=== PATIENT | female | born 1940 | race Caucasian/White ===

== ENCOUNTER 2017-03-20 05:59 | Observation (INO) | payer MEDICARE, OTHER ==
[2017-03-20] VITALS (8 sets, daily range): BP systolic 114–196; BP diastolic 64–87; PULSE 66–98; RESP 17–22; TEMP 97.8–98; O2SAT 96–100
[~2017-03-20 05:59] MED LIST: ALEN35TA24 PO; BENI40TA30 PO; BONI150T PO; CALC600T10; COUM4TAB7 PO; HYDR12.56 PO; LEVO125T3 PO; MELO15TA2 PO; METF1000 PO; OMEG306C PO; OXYB5TAB PO; PRAV10 PO; VITA100020 IM; WARF2TAB PO; WARF5TAB PO; WARF7.5 PO; [UNRECOGNIZED DRUG - SUPPLY]
--- NOTE | 2017-03-20 06:21 | PD ---
HPI Chief Complaint: Hip Injury Time Seen by Provider: 06:19 Travel History International Travel<30 days: No Contact w/Intl Traveler<30days: No Traveled to known affect area: No History of Present Illness HPI 76 yo F arrives by EMS 2/2 L hip pain. Pt has hx L total hip arthroplasty. This morning she could not lift her left leg or get out of bed due to pain. Pain is worse with palpation. She denies trauma/repetitive use of LLE. No other acute complaint is offered. Normally she takes tramadol which helps but she did not take any this morning. She reports taking two Tylenol approx 2 hours prior to ER arrival. No numbness/tingling or either lower extremity. PFSH Past Medical History Anemia: Yes Diabetes: Yes Patient Takes Glucophage: No Hypertension: Yes Thyroid Disease: Yes ?: Not Past Surgical History Hysterectomy: Yes Social History Alcohol Use: Yes Tobacco Use: No Substance Use: No Allergies-Medications (Allergen,Severity, Reaction): Coded Allergies: Penicillin (Verified Allergy, Intermediate, HIVES, 03/20/17) Reported Meds & Prescriptions Reported Meds & Active Scripts Active Reported Tramadol (Tramadol HCl) 50 Mg Tab 50 Mg PO Q6H PRN Linzess (Linaclotide) 145 Mcg Cap 145 Mcg PO Pravastatin 10 Mg Tab 10 Mg PO HS Losartan (Losartan Potassium) 25 Mg Tab 25 Mg PO DAILY Ditropan (Oxybutynin Chloride) 5 Mg Tab 5 Mg PO DAILY Levothyroxine (Levothyroxine Sodium) 125 Mcg Tab 125 Mcg PO DAILY Amlodipine (Amlodipine Besylate) 2.5 Mg Tab 2.5 Mg PO DAILY Hydrochlorothiazide 12.5 Mg Tab 12.5 Mg PO DAILY Pradaxa (Dabigatran) 150 Mg Cap 150 Mg PO BID Metformin (Metformin HCl) 1,000 Mg Tab 1,000 Mg PO DAILY With a meal Review of Systems Except as stated in HPI: all other systems reviewed are Neg General / Constitutional: No: Fever, Chills Physical Exam Narrative GENERAL: 76 yo F, WNWD, pleasant SKIN: Warm and dry. HEAD: Atraumatic. Normocephalic. EYES: Pupils equal and round. No scleral icterus. No injection or drainage. ENT: No nasal bleeding or discharge. Mucous membranes pink and moist. NECK: Trachea midline. No JVD. CARDIOVASCULAR: Regular rate and rhythm. RESPIRATORY: No accessory muscle use. Clear to auscultation. Breath sounds equal bilaterally. GASTROINTESTINAL: Abdomen soft, non-tender, nondistended. Hepatic and splenic margins not palpable. MUSCULOSKELETAL: LLE active hip flexion limited 2/2 pain. + Pain with axial load at LLE. Chronic shortening deformity of LLE. Minimal TTP overlying L greater trochanter. NEUROLOGICAL: Awake and alert. No obvious cranial nerve deficits. Motor grossly within normal limits. Five out of 5 muscle strength in the arms and legs. Normal speech. PSYCHIATRIC: Appropriate mood and affect; insight and judgment normal. Data Data Last Documented VS Vital Signs Date Time Temp Pulse Resp B/P Pulse Ox O2 Delivery O2 Flow Rate FiO2 03/20/17 06:35 96 Room Air 03/20/17 06:00 97.9 98 22 196/87 VS reviewed Orders Complete Blood Count With Diff (03/20/17 06:19) Comprehensive Metabolic Panel (03/20/17 06:19) Prothrombin Time / Inr (Pt) (03/20/17 06:19) Act Partial Throm Time (Ptt) (03/20/17 06:19) Femur (Ap & Lat/2vws) (03/20/17 06:19) Hip, Uni(Ap&Lat) W Ap Pelvis (03/20/17 06:19) Iv Access Insert/Monitor (03/20/17 06:19) Oximetry (03/20/17 06:19) Ecg Monitoring (03/20/17 06:19) Morphine Inj (Morphine Inj) (03/20/17 06:30) Ondansetron Inj (Zofran Inj) (03/20/17 06:30) Sodium Chloride 0.9% Flush (Ns Flush) (03/20/17 06:30) MDM Medical Decision Making Medical Screen Exam Complete: Yes Emergency Medical Condition: Yes Medical Record Reviewed: Yes Differential Diagnosis Femur fracture, femur dislocation, pelvis fracture, hardware migration Narrative Course Imaging and blood work pending at time of dictation. Oncoming provider to disposition pending imaging results. Abdoulaye Burgess MD Mar 20, 2017 06:21
[2017-03-20] MEDS ORDERED: TRAM50TA PO (06:24)
[2017-03-20] MEDS ORDERED: PRAV10TA PO (06:24)
[2017-03-20] MEDS ORDERED: METF1000 PO (06:24)
[2017-03-20] MEDS ORDERED: PRAD150C PO (06:24)
[2017-03-20] MEDS ORDERED: OXYB5TAB10 PO (06:24)
[2017-03-20] MEDS ORDERED: LEVO125T4 PO (06:24)
[2017-03-20] MEDS ORDERED: HYDR12.56 PO (06:24)
[2017-03-20] MEDS ORDERED: LINA145C PO (06:24)
[2017-03-20] MEDS ORDERED: AMLO2.5T PO (06:24)
[2017-03-20] MEDS ORDERED: LOSA25TA PO (06:24)
[2017-03-20] MEDS ORDERED: SODIUM CHLORIDE 0.9% FLUSH 10 ML FLUSH IVF PRN (06:30)
[2017-03-20] MEDS ORDERED: MORPHINE SULFATE 4 MG/ML INJ IV PUSH ONE ×3 (06:30→09:15)
[2017-03-20] MEDS ORDERED: ONDANSETRON HCL 4 MG/2 ML VIAL IVP ONE (06:30)
[2017-03-20 06:46] LABS: AUTOMATED NEUTROPHIL # 4.6 TH/MM3 (1.8-7.7); BASOPHIL % 0.1 % (0.0-2.0); HEMATOCRIT 41.2 % (35.0-46.0); HEMO FLAGS DIFF FINAL; LYMPH % 28.9 % (9.0-44.0); LYMPHOCYTE # 2.2 TH/MM3 (1.0-4.8); MEAN CELL VOLUME 78.7 FL (80.0-100.0); MEAN CORPUSCULAR HEMOGLOBIN 25.9 PG (27.0-34.0); MEAN CORPUSCULAR HGB CONC 32.9 % (32.0-36.0); MONO % 9.3 % (0.0-8.0); NEUT % 61.7 % (16.0-70.0); PLATELET COUNT 217 TH/MM3 (150-450); RED BLOOD COUNT 5.24 MIL/MM3 (4.00-5.30); RED CELL DISTRIBUTION WIDTH 16.1 % (11.6-17.2); WHITE BLOOD COUNT 7.5 TH/MM3 (4.0-11.0)
[2017-03-20 06:59] LABS: APTT (PATIENT) 35.4 SEC (24.3-30.1); PROTHROMBIN TIME - PATIENT 11.4 SEC (9.8-11.6)
--- NOTE | 2017-03-20 07:04 | PD ---
Physical Exam Date Seen by Provider: Mar 20, 2017 Time Seen by Provider: 07:02 Narrative The patient is a 76-year-old female who is initially evaluated by Dr. Burgess. Please refer to the initial history, physical, diagnostic evaluation, and treatment modality plan. The patient signed out at 7 AM with laboratory evaluation and radiographic evaluation pending. The patient apparently has chronic bilateral hip pain with progressing left hip pain, unable to flex the left hip this morning and unable to ambulate or bear weight. The patient apparently had surgery that was performed in [place] but is followed by an orthopedic surgeon in the local area, according to Dr. uBrgess. Data Data Last Documented VS Vital Signs Date Time Temp Pulse Resp B/P Pulse Ox O2 Delivery O2 Flow Rate FiO2 03/20/17 08:50 18 03/20/17 08:44 79 168/69 98 Room Air 03/20/17 06:00 97.9 Orders Complete Blood Count With Diff (03/20/17 06:19) Comprehensive Metabolic Panel (03/20/17 06:19) Prothrombin Time / Inr (Pt) (03/20/17 06:19) Act Partial Throm Time (Ptt) (03/20/17 06:19) Femur (Ap & Lat/2vws) (03/20/17 06:19) Hip, Uni(Ap&Lat) W Ap Pelvis (03/20/17 06:19) Iv Access Insert/Monitor (03/20/17 06:19) Oximetry (03/20/17 06:19) Ecg Monitoring (03/20/17 06:19) Morphine Inj (Morphine Inj) (03/20/17 06:30) Ondansetron Inj (Zofran Inj) (03/20/17 06:30) Sodium Chloride 0.9% Flush (Ns Flush) (03/20/17 06:30) Morphine Inj (Morphine Inj) (03/20/17 08:15) Morphine Inj (Morphine Inj) (03/20/17 09:15) Amlodipine (Norvasc) (03/20/17 09:45) Admit Order (Ed Use Only) (03/20/17 09:39) Dabigatran (Pradaxa) (03/20/17 09:45) Hydrochlorothiazide (Microzide) (03/20/17 09:45) Levothyroxine (Synthroid) (03/20/17 09:45) Losartan (Cozaar) (03/20/17 09:45) Pravastatin (Pravachol) (03/20/17 21:00) Tramadol (Ultram) (03/20/17 09:45) Labs Laboratory Tests Test 03/20/17 06:27 White Blood Count 7.5 TH/MM3 Red Blood Count 5.24 MIL/MM3 Hemoglobin 13.6 GM/DL Hematocrit 41.2 % Mean Corpuscular Volume 78.7 FL Mean Corpuscular Hemoglobin 25.9 PG Mean Corpuscular Hemoglobin 32.9 % Concent Red Cell Distribution Width 16.1 % Platelet Count 217 TH/MM3 Mean Platelet Volume 8.9 FL Neutrophils (%) (Auto) 61.7 % Lymphocytes (%) (Auto) 28.9 % Monocytes (%) (Auto) 9.3 % Eosinophils (%) (Auto) 0.0 % Basophils (%) (Auto) 0.1 % Neutrophils # (Auto) 4.6 TH/MM3 Lymphocytes # (Auto) 2.2 TH/MM3 Monocytes # (Auto) 0.7 TH/MM3 Eosinophils # (Auto) 0.0 TH/MM3 Basophils # (Auto) 0.0 TH/MM3 CBC Comment DIFF FINAL Differential Comment Prothrombin Time 11.4 SEC Prothromb Time International 1.0 RATIO Ratio Activated Partial 35.4 SEC Thromboplast Time Sodium Level 139 MEQ/L Potassium Level 3.6 MEQ/L Chloride Level 102 MEQ/L Carbon Dioxide Level 27.4 MEQ/L Anion Gap 10 MEQ/L Blood Urea Nitrogen 12 MG/DL Creatinine 0.77 MG/DL Estimat Glomerular Filtration 73 ML/MIN Rate Random Glucose 151 MG/DL Calcium Level 9.4 MG/DL Total Bilirubin 0.4 MG/DL Aspartate Amino Transf 13 U/L (AST/SGOT) Alanine Aminotransferase 14 U/L (ALT/SGPT) Alkaline Phosphatase 89 U/L Total Protein 7.9 GM/DL Albumin 3.8 GM/DL [facility] Medical Record Reviewed: Yes Supervised Visit with CAMI: No Interpretation(s) Last Impressions Hip and Pelvis X-Ray 03/20/17618 Signed Impressions: Service Date/Time: Monday, March 20, 2017 06:43 - CONCLUSION: No acute left hip abnormality is identified. However, there has been left total hip arthroplasty with longstem femoral prosthesis and the acetabulum is superiorly located compared to the [place] acetabulum. The most proximal cerclage wire is fractured but otherwise artery demonstrates no acute finding. Irving Mejia MD Femur X-Ray 03/20/17 0619 Signed Impressions: Service Date/Time: Monday, March 20, 2017 06:45 - CONCLUSION: No definite acute finding is identified. Extensive left femur and hip hardware, as above. The most proximal left femur cerclage wire is fractured. Irving Mejia MD Differential Diagnosis Differential diagnosis includes fracture, dislocation, hardware migration, sprain, strain, septic joint. Narrative Course The patient was initially evaluated by the previous physician, Dr. Burgess. Please refer to initial history, physical, diagnostic evaluation, and treatment modality plan. The patient was signed out at 7 AM with laboratory evaluation and radiographic evaluation pending. The patient was seen by Dr. Ibrahim, now is followed by Dr. Tate. The patient's pain was improved with morphine, however, the patient still had pain with flexion of the hip, she was able to flex at 30 after the initial dose of morphine. Therefore, second dose of morphine was ordered. X-rays reveal chronic changes, no acute findings. An attempt at ambulation was then made after the second dose of morphine. The patient was only able to ambulate 2 steps with her cane and then had to sit back down secondary to intractable pain. I had a discussion with the patient regarding pain medication and outpatient follow-up with Dr. Tate versus 23 hour observation for pain control, PT evaluation, and evaluation by her orthopedic surgeon, Dr. Tate. Patient has been unable to sleep secondary to increasing pain, therefore, patient will be 23 hour observation. The patient has [employer], therefore, [facility] were paged for 23 hour observation. Physician Communication Physician Communication [facility] were paged for 23 hour observation. I discussed the patient with Dr. Morin who agrees with 23 hour observation. Diagnosis Primary Impression: Intractable pain Additional Impression: Inability to ambulate due to hip Admitting Information Admitting Physician Requests: Observation Condition: Stable Brian Shah MD Mar 20, 2017 07:03
[2017-03-20 07:09] LABS: ALT (GPT) 14 U/L (10-53); ANION GAP 10 MEQ/L (5-15); AST (GOT) 13 U/L (15-37); BICARBONATE 27.4 MEQ/L (21.0-32.0); BLOOD UREA NITROGEN 12 MG/DL (7-18); CHLORIDE 102 MEQ/L (98-107); GLOMERULAR FILTRATION RATE 73 ML/MIN (>89); POTASSIUM 3.6 MEQ/L (3.5-5.1); SODIUM (NA) 139 MEQ/L (136-145)
[2017-03-20 07:10] LABS: ALKALINE PHOSPHATASE 89 U/L (45-117); TOTAL BILIRUBIN ADULT 0.4 MG/DL (0.2-1.0)
--- NOTE | 2017-03-20 07:17 | RADRPT ---
EXAM DATE/TIME: 03/20/2017 06:43 [facility] COMPARISON: FEMUR LEFT (AP & LAT/2VWS), March 20, 2017, 6:45. INDICATIONS : Left hip pain, no injury. MEDICAL HISTORY : Arthritis. SURGICAL HISTORY : Right total hip, left total hip, ORIF left femur ENCOUNTER: Initial ACUITY: 4 - 6 days PAIN SCORE: 10/10 LOCATION: Left proximal hip FINDINGS: AP view of the pelvis and 2 views of the left hip joint demonstrate moderate to left total hip arthro plasty with longstem femoral prosthesis. The acetabular component is superiorly located above the [place] acetabulum. It contains 4 cancellous screws. There are also cerclage wires around the proximal an d mid femur. The most proximal cerclage wire is fractured. There is heterotopic bone around the left hip joint. There are no findings to indicate hardware failure or loosening. Patient is also post righ t total hip arthroplasty. Pelvic bones demonstrate no acute finding. There are degenerative changes i n the visualized inferior lumbar spine. CONCLUSION: No acute left hip abnormality is identified. However, there has been left total hip arthroplasty with longstem femoral prosthesis and the acetabulum is superiorly located compared to the [place] acetabul um. The most proximal cerclage wire is fractured but otherwise artery demonstrates no acute finding. Irving Mejia MD on March 20, 2017 at 7:12 Board Certified Radiologist. This report was verified electronically.
--- NOTE | 2017-03-20 07:21 | RADRPT ---
EXAM DATE/TIME: 03/20/2017 06:45 [facility] COMPARISON: No previous studies available for comparison. INDICATIONS : Left femur pain, no injury. MEDICAL HISTORY : Arthritis. SURGICAL HISTORY : Left total hip, Left ORIF femur ENCOUNTER: Initial ACUITY: 4 - 6 days PAIN SCORE: 10/10 LOCATION: Left proximal femur FINDINGS: 5 views of the left femur demonstrate a longstem femoral prosthesis in the proximal femur related to a total hip arthroplasty. There are multiple cerclage wires present proximally and distally with the most proximal cerclage wire being fractured. There is also a distal lateral femoral side plate with m ultiple interlocking screws. The acetabular component of the hip arthroplasty superiorly located. The re is heterotopic ossification around the hip joint. No soft tissue abnormality is seen. CONCLUSION: No definite acute finding is identified. Extensive left femur and hip hardware, as above. The most pr oximal left femur cerclage wire is fractured. Irving Mejia MD on March 20, 2017 at 7:18 Board Certified Radiologist. This report was verified electronically.
[2017-03-20] MEDS ORDERED: LACTULOSE SYRUP 20 GM/30 ML CUP PO PRN (09:45)
[2017-03-20] MEDS ORDERED: NALOXONE HCL 0.4 MG/ML AMP IV PRN (09:45)
[2017-03-20] MEDS ORDERED: BISACODYL 10 MG SUPP RECTAL PRN (09:45)
[2017-03-20] MEDS ORDERED: SODIUM CHLORIDE 0.9% FLUSH 10 ML FLUSH IV FLUSH PRN (09:45)
[2017-03-20] MEDS ORDERED: ACETAMINOPHEN 325 MG TAB PO PRN (09:45)
[2017-03-20] MEDS ORDERED: SENNOSIDES 8.6 MG TAB PO PRN (09:45)
[2017-03-20] MEDS ORDERED: ONDANSETRON HCL 4 MG/2 ML VIAL IVP PRN (09:45)
[2017-03-20] MEDS ORDERED: MAGNESIUM HYDROXIDE SUSP 30 ML CUP PO PRN (09:45)
[2017-03-20] MEDS ORDERED: PILL SPLITTER OTHER PRN (10:00)
--- NOTE | 2017-03-20 10:09 | HHI.HP ---
HPI Service [facility] Primary Care Physician Candy Belle, [facility] Admission Diagnosis intractable left hip pain, inability to ambulate Diagnoses: Chief Complaint: Left Hip Pain Travel History International Travel<30 Days: No Contact w/Intl Traveler <30 Da: No Traveled to Known Affected Are: No History of Present Illness 76-year-old female with a past medical history of chronic left hip pain, HTN, HLD, DM, hypothyroidism, urinary incontinence, history of DVT who presented for worsening left hip pain. The patient states that since Sunday she's been having worsening left hip pain. The patient has a history of chronic left hip pain with surgery 6 with previous hardware failure, left pleurectomy DVT several years ago, history of MRSA infection of the left hip postoperatively. The patient states that previously she had intermittent left chest pain but is now become constant. She states that previously she takes tramadol for the hip pain usually once a day, the most 2. She denies any new injury to her hip or any recent overuse. She states the Pain has been relieved with morphine and is exacerbated when she moves it. He denies any fevers or chills. Her current orthopedic doctor is Dr. Tate. Review of Systems Musculoskeletal: COMPLAINS OF: Joint pain Except as stated in HPI: all other systems reviewed are Neg Past Family Social History Past Medical History Hypertension Hyperlipidemia Diabetes mellitus Osteoarthritis with chronic hip and shoulder pain Hyperthyroidism History of provoked left lower showing DVT History of postoperative MRSA infection Past Surgical History Left hip surgery 6 Hysterectomy Right hip surgery 1 Right leg tumor removal Reported Medications Tramadol (Tramadol HCl) 50 Mg Tab 50 Mg PO Q6H PRN Linzess (Linaclotide) 145 Mcg Cap 145 Mcg PO Pravastatin 10 Mg Tab 10 Mg PO HS Losartan (Losartan Potassium) 25 Mg Tab 25 Mg PO DAILY Ditropan (Oxybutynin Chloride) 5 Mg Tab 5 Mg PO DAILY Levothyroxine (Levothyroxine Sodium) 125 Mcg Tab 125 Mcg PO DAILY Amlodipine (Amlodipine Besylate) 2.5 Mg Tab 2.5 Mg PO DAILY Hydrochlorothiazide 12.5 Mg Tab 12.5 Mg PO DAILY Pradaxa (Dabigatran) 150 Mg Cap 150 Mg PO BID Metformin (Metformin HCl) 1,000 Mg Tab 1,000 Mg PO DAILY With a meal Allergies: Coded Allergies: Penicillin (Verified Allergy, Intermediate, HIVES, 03/20/17) Active Ordered Medications Current Medications Medications (Trade) Dose Ordered Sig/Catracho Route Start Time Stop Time Status Last Admin (Norvasc) 2.5 mg DAILY PO 03/20/17 09:45 (Pradaxa) 150 mg BID PO 03/20/17 09:45 (Microzide) 12.5 mg DAILY PO 03/20/17 09:45 (Synthroid) 125 mcg DAILY@06 PO 03/20/17 09:45 (Cozaar) 25 mg DAILY PO 03/20/17 09:45 (Pravachol) 10 mg HS PO 03/20/17 21:00 (Ultram) 50 mg Q6H PRN PO 03/20/17 09:45 UNV (NS Flush) 2 ml UNSCH PRN IV FLUSH 03/20/17 09:45 UNV (NS Flush) 2 ml BID IV FLUSH 03/20/17 21:00 UNV (Tylenol) 650 mg Q4H PRN PO 03/20/17 09:45 (Zofran Inj) 4 mg Q6H PRN IVP 03/20/17 09:45 (Narcan Inj) 0.4 mg UNSCH PRN IV 03/20/17 09:45 (Kelsie-Colace) 1 tab BID PO 03/20/17 21:00 (Milk Of Magnesia Liq) 30 ml Q12H PRN PO 03/20/17 09:45 (Senokot) 17.2 mg Q12H PRN PO 03/20/17 09:45 (Dulcolax Supp) 10 mg DAILY PRN RECTAL 03/20/17 09:45 (Lactulose Liq) 30 ml DAILY PRN PO 03/20/17 09:45 (Pill Splitter) 1 ea UNSCH PRN OTHER 03/20/17 10:00 Family History Mother had diabetes Social History This at home and ambulates using a cane May drink one beer weekly Denies any tobacco or substance use Physical Exam Vital Signs Vital Signs Date Time Temp Pulse Resp B/P Pulse Ox O2 Delivery O2 Flow Rate FiO2 03/20/17 08:50 18 03/20/17 08:44 79 18 168/69 98 Room Air 03/20/17 07:11 76 18 156/68 100 Room Air 03/20/17 06:35 96 Room Air 03/20/17 06:00 97.9 98 22 196/87 98 Room Air Physical Exam GENERAL: Well-developed well-nourished. In no acute distress. SKIN: Warm and dry. No lesions noted. HEENT: Normocephalic. Pupils equal and round. Mucous membranes pink and moist. CARDIOVASCULAR: Regular rate and rhythm. No murmur appreciated. RESPIRATORY: No accessory muscle use. Clear to auscultation. Breath sounds equal bilaterally. GASTROINTESTINAL: Abdomen soft, non-tender, nondistended. Bowel sounds x4. MUSCULOSKELETAL: Left hip pain with ROM. No history of TTP. No calf swelling or tenderness. No clubbing or cyanosis. No edema. NEUROLOGICAL: Awake and alert. No focal neurological deficits. Moves upper and lower extremities spontaneously. Normal speech. Limited strength exam at left hip. Otherwise strength 5/5. PSYCHIATRIC: Appropriate mood and affect; insight and judgment normal. Laboratory Laboratory Tests Test 03/20/17 06:27 White Blood Count 7.5 Red Blood Count 5.24 Hemoglobin 13.6 Hematocrit 41.2 Mean Corpuscular Volume 78.7 Mean Corpuscular Hemoglobin 25.9 Mean Corpuscular Hemoglobin 32.9 Concent Red Cell Distribution Width 16.1 Platelet Count 217 Mean Platelet Volume 8.9 Neutrophils (%) (Auto) 61.7 Lymphocytes (%) (Auto) 28.9 Monocytes (%) (Auto) 9.3 Eosinophils (%) (Auto) 0.0 Basophils (%) (Auto) 0.1 Neutrophils # (Auto) 4.6 Lymphocytes # (Auto) 2.2 Monocytes # (Auto) 0.7 Eosinophils # (Auto) 0.0 Basophils # (Auto) 0.0 CBC Comment DIFF FINAL Differential Comment Prothrombin Time 11.4 Prothromb Time International 1.0 Ratio Activated Partial 35.4 Thromboplast Time Sodium Level 139 Potassium Level 3.6 Chloride Level 102 Carbon Dioxide Level 27.4 Anion Gap 10 Blood Urea Nitrogen 12 Creatinine 0.77 Estimat Glomerular Filtration 73 Rate Random Glucose 151 Calcium Level 9.4 Total Bilirubin 0.4 Aspartate Amino Transf 13 (AST/SGOT) Alanine Aminotransferase 14 (ALT/SGPT) Alkaline Phosphatase 89 Total Protein 7.9 Albumin 3.8 Result Diagram: 03/20/1762603/20/17626 Imaging Last Impressions Hip and Pelvis X-Ray 03/20/17618 Signed Impressions: Service Date/Time: Monday, March 20, 2017 06:43 - CONCLUSION: No acute left hip abnormality is identified. However, there has been left total hip arthroplasty with longstem femoral prosthesis and the acetabulum is superiorly located compared to the [place] acetabulum. The most proximal cerclage wire is fractured but otherwise artery demonstrates no acute finding. Irving Mejia MD Femur X-Ray 03/20/17618 Signed Impressions: Service Date/Time: Monday, March 20, 2017 06:45 - CONCLUSION: No definite acute finding is identified. Extensive left femur and hip hardware, as above. The most proximal left femur cerclage wire is fractured. Irving Mejia MD Assessment and Plan Assessment and Plan 76-year-old female with a past medical history of chronic left hip pain, HTN, HLD, DM, hypothyroidism, urinary incontinence, history of DVT who presented for worsening left hip pain Acute on chronic intractable left hip pain: X-rays show no acute findings with stable hardware other than proximal left cerclage wire which was fractured. Consult patient's orthopedic physician, although we'll plan on conservative management. Continue pain control with tramadol and IV morphine for breakthrough. PT. Diabetes mellitus: Hold her metformin. Monitor Accu-Cheks. Cover with SSI. History of DVT: Continue Pradaxa for now pending orthopedic evaluation. Hypertension: Chronic. BP is elevated at this time, likely secondary to pain. Continue home losartan, amlodipine, HCTZ. IV Vasotec as needed. Other chronic medical conditions include HLD, incontinence, chronic constipation : Stable at this time and will continue home medications as indicated. Code Status Full Code Discussed Condition With Patient with daughter at bedside, Dr. Morin at bedside Attending Statement patient seen in Emergency room, plan discussed with Patient, her Daughter Miss Stone and Adis Fernandes Mar 20, 2017 10:09 Aakash Lemus MD Mar 20, 2017 16:22
[2017-03-20] MEDS ORDERED: ENALAPRILAT 1.25 MG/ML VIAL IV PUSH PRN (10:30)
[2017-03-20] MEDS: DABIGATRAN ETEXILATE 150 MG CAP PO SCH ×2 (13:00→20:45)
[2017-03-20] MEDS: HYDROCHLOROTHIAZIDE 12.5 MG CAP PO SCH (13:00)
[2017-03-20] MEDS: amLODIPine BESYLATE 5 MG TAB PO SCH (13:02)
[2017-03-20] MEDS: INSULIN NovoLIN REGULAR SUPPLEMENTAL SCALE SQ SCH ×3 (13:02→21:00)
[2017-03-20] MEDS: LOSARTAN 25 MG TAB PO SCH (13:02)
[2017-03-20] MEDS: LEVOTHYROXINE SODIUM 125 MCG TAB PO SCH (13:02)
[2017-03-20] MEDS: traMADol HCL 50 MG TAB PO PRN ×2 (15:11→20:46)
[2017-03-20] MEDS: MORPHINE SULFATE 4 MG/ML INJ IV PUSH PRN (16:59)
[2017-03-20] MEDS: FAMOTIDINE 20 MG TAB PO SCH ×2 (17:29→20:45)
--- NOTE | 2017-03-20 19:10 | MB ---
cc: LUIS F HODGES DATE OF CONSULTATION 03/20/2017 REASON FOR CONSULTATION Left hip pain. HISTORY OF THE PRESENT ILLNESS The patient is a 76-year-old female who has a complex history in regards to her left hip. She states she has undergone approximately five or six surgeries in regards to the left hip. [place]. She had a fracture that required surgical repair. She states at one point she had an infection that required surgical debridement and treatment. She thinks she has had a total of approximately six surgeries. She states she is doing relatively well until approximately five days ago when she started to develop the onset of left hip pain. She denies any falls or trauma to her hip. She is walking with a cane. She has been taken to [facility] Emergency Room. She was given morphine which is helping her symptoms. She denies fevers or chills. No numbness or tingling. Most of the pain was the lateral aspect of the left hip and lateral aspect of the left gluteal region. PAST MEDICAL HISTORY Positive for: 1. Hypertension. 2. Hyperlipidemia. 3. Diabetes. 4. Osteoarthritis. 5. Hypothyroidism. 6. History of deep venous thrombosis. 7. History of multiple left hip surgeries. 8. Hysterectomy. 9. History of right total hip arthroplasty. 10. History of right leg tumor removal. MEDICATIONS 1. Tramadol. 2. Pravastatin. 3. Losartan. 4. Ditropan. 5. Levothyroxine. 6. Amlodipine. 7. Hydrochlorothiazide. 8. Pradaxa. 9. Glucophage. ALLERGIES PENICILLIN. REVIEW OF SYSTEMS Negative for 12 systems other than HPI. SOCIAL HISTORY Nonsmoker, nondrinker. PHYSICAL EXAMINATION HEENT: Normocephalic, atraumatic. Pupils are round. Extraocular muscles intact. NECK: Supple. LUNGS: Clear. HEART: Regular rate and rhythm. ABDOMEN: Soft and nontender. EXTREMITIES: Examination of the left hip, she has a well healed surgical incision along the posterior lateral aspect. There is no swelling. There is no redness. No erythema. No drainage. She ambulates antalgic with the assistance of a cane. She can flex and extend her ankle and toes distally. No asymmetric thigh or calf swelling. LABORATORY DATA White blood cell count 7.5, hemoglobin 13, hematocrit 41, platelet 217. Glucose 151, BUN 12, creatinine 0.7. INR is 1.0. AST is 13. IMAGING X-rays of the AP pelvis, AP lateral left hip shows bilateral total hip arthroplasties. The left hip shows a revision cup with multiple screws transfixed in the acetabular cup. The cup has a slightly high riding position center to the acetabulum. There is a long revision femoral stem which appears intact. There is evidence of cerclage cables around the proximal portion of the stem with one cable that was chronically broken. She has a long cerclage cable plate which looks intact and a healed periprosthetic fracture. IMPRESSION A 76-year-old female left hip pain, increasing severity the last 5 days. She has multiple complex history in regards to the left hip to include six surgeries which consist of total hip arthroplasty revision, total hip arthroplasty. She had treatment of reported infection at one point. She has had periprosthetic fractures. These have been treated with surgical plating. She has tenderness to palpation along the lateral aspect of the left hip which may show a trochanteric bursitis. PLAN I have discussed the findings with the patient. I have the diagnosis with the patient. I recommend x-rays AP and lateral of the left femur. Recommend CT scan of the left hip. Still is not certain the etiology of the increasing pain at this point, so further workup is indicated. Luis F Hodges MD JWM/KK /6:45 PM /7:00 PM
--- NOTE | 2017-03-20 20:31 | RADRPT ---
EXAM DATE/TIME: 03/20/2017 19:59 [place] COMPARISON: FEMUR LEFT (AP & LAT/2VWS), March 20, 2017, 6:45. HIP LEFT (AP&LAT 2/3VWS) W AP PELVIS, March 20, 2017 , 6:43. INDICATIONS : Left femur pain, no known injury. RADIATION DOSE: 32.79 CTDIvol (mGy) MEDICAL HISTORY : Carcinoma, bone. SURGICAL HISTORY : Left total hip. Left ORIF femur. ENCOUNTER: Initial ACUITY: 1 day PAIN SCALE: 8/10 LOCATION: Left femur. TECHNIQUE: Volumetric scanning of the femur was performed. Using automated exposure control and adjustment of t he mA and/or kV according to patient size, radiation dose was kept as low as reasonably achievable to obtain optimal diagnostic quality images. FINDINGS: Don't have a remote priors. Patient has a left total hip arthroplasty that has probably been revised at least once. The acetabular component is located superiorly and posteriorly within the iliac bone. There are 4 screws of the acetabular cup that all appear to have decent purchase into bone. There is chronic periacetabular remodeling and potentially an old acetabular fracture. I don't see an acute fr acture. Longstem femoral component is present. There is a large amount of chronic appearing bone resorption p osterior to the proximal portion of the femoral component but the mid and distal portions appear well -seated in the medullary space. Beginning at the mid shaft, a lateral plate, 3 cerclage wires and mul tiple screws are seen of the femur. 2 of the cerclage wires encircle the bone at the level of the dis phillip femoral prosthesis. There is an old mid to distal shaft fracture that appears healed in near-jadiel omic alignment. CONCLUSION: 1. No acute fracture demonstrated. 2. Malpositioned acetabular component of the left hip arthroplasty but this appears chronic. 3. Chronic appearing bony resorption around proximal portion of the femoral component of the left hip arthroplasty but no evidence of loosening. 4. Healed mid shaft fracture of the left femur. Mid and distal lateral plate and screws present. Irving Rizo MD on March 20, 2017 at 20:24 Board Certified Radiologist. This report was verified electronically.
[2017-03-20] MEDS: DOCUSATE SODIUM 50 MG/SENNA 8.6 MG TAB PO SCH (20:45)
[2017-03-20] MEDS: SODIUM CHLORIDE 0.9% FLUSH 10 ML FLUSH IV FLUSH SCH (21:00)
[2017-03-20] MEDS ORDERED: PRAVASTATIN SOD 10 MG TAB PO SCH (21:00)
[2017-03-21 04:21] VITALS: BP 141/69; PULSE 66; RESP 18; TEMP 98; O2SAT 96
[2017-03-21] MEDS: MORPHINE SULFATE 4 MG/ML INJ IV PUSH PRN (04:24)
[2017-03-21] MEDS: LEVOTHYROXINE SODIUM 125 MCG TAB PO SCH (06:35)
[2017-03-21 07:26] VITALS: BP 130/67; PULSE 66; RESP 16; TEMP 97.7; O2SAT 95
--- NOTE | 2017-03-21 08:23 | PD.ORT.PN ---
Subjective Subjective Remarks pain has improved in L hip/thigh. Objective Vitals Vital Signs Date Time Temp Pulse Resp B/P Pulse Ox O2 Delivery O2 Flow Rate FiO2 03/21/17 07:26 97.7 66 16 130/67 95 03/21/17 06:31 18 03/21/17 04:21 98.0 66 18 141/69 96 03/20/17 23:57 97.8 66 18 144/69 97 03/20/17 21:17 18 03/20/17 20:56 98.0 67 18 114/66 98 03/20/17 15:50 97.9 73 17 128/64 97 03/20/17 12:25 97.8 74 18 138/67 98 03/20/17 08:50 18 03/20/17 08:44 79 18 168/69 98 Room Air I/O 03/20/17 03/20/17 03/20/17 03/21/17 03/21/17 03/21/17 07:00 15:00 23:00 07:00 15:00 23:00 Intake Total 240 ml 200 ml 200 ml Balance 240 ml 200 ml 200 ml Intake Oral 240 ml 200 ml 200 ml Result Diagram: 03/20/1762603/20/17626 Objective Remarks in bed, nad thigh soft, slightly tender mid L thigh incisions well healed neg homans nvi Assessment & Plan Assessment and Plan L hip/thigh pain hx of L CHAZ with multiple revisions and periprosthetic fx, hx of MRSA infection increase in pain since last Sunday CT - no sign of acute fracture/hardware loosening, no fluid collection suggesting infection probable stress fracture L femur Plan: discussed diagnosis and treatment options with patient NWB LLE ROM as tolerated Pradaxa cleared for d/c from ortho f/up dr. song 2 weeks as OP Kush Mcwilliams Mar 21, 2017 08:23
[2017-03-21] MEDS ORDERED: ACETAMINOPHEN/HYDROcodone 325 MG/5 MG TAB PO PRN (08:30)
[2017-03-21] MEDS ORDERED: ACETAMINOPHEN/HYDROcodone 325 MG/7.5 MG TAB PO PRN (08:30)
[2017-03-21] MEDS ORDERED: HYDR-3516 PO (08:56)
--- NOTE | 2017-03-21 09:04 | HHI.PR ---
Subjective Remarks 76-year-old female with a past medical history of chronic left hip pain, HTN, HLD, DM, hypothyroidism, urinary incontinence, history of DVT who presented for worsening left hip pain. The patient states that since Sunday she's been having worsening left hip pain. The patient has a history of chronic left hip pain with surgery 6 with previous hardware failure, left pleurectomy DVT several years ago, history of MRSA infection of the left hip postoperatively. The patient states that previously she had intermittent left chest pain but is now become constant. She states that previously she takes tramadol for the hip pain usually once a day, the most 2. She denies any new injury to her hip or any recent overuse. She states the Pain has been relieved with morphine and is exacerbated when she moves it. He denies any fevers or chills. Her current orthopedic doctor is Dr. Tate. 03/21: Seen in her bedroom in the presence of relatives, as per Orthopedic Surgery recommended to discharge Home and follow up with Doctor Braulio in two weeks, will follow as outpatient probable Stress fracture on the left, recommended no weight bearing on the left lower extremity, crutches indicated, discussed with marine service manager, no nausea, vomit or diarrhea. Objective Vital Signs Date Time Temp Pulse Resp B/P Pulse Ox O2 Delivery O2 Flow Rate FiO2 03/21/17 07:26 97.7 66 16 130/67 95 03/21/17 06:31 18 03/21/17 04:21 98.0 66 18 141/69 96 03/20/17 23:57 97.8 66 18 144/69 97 03/20/17 21:17 18 03/20/17 20:56 98.0 67 18 114/66 98 03/20/17 15:50 97.9 73 17 128/64 97 03/20/17 12:25 97.8 74 18 138/67 98 I/O 03/20/17 03/20/17 03/20/17 03/21/17 03/21/17 03/21/17 07:00 15:00 23:00 07:00 15:00 23:00 Intake Total 240 ml 200 ml 200 ml Balance 240 ml 200 ml 200 ml Intake Oral 240 ml 200 ml 200 ml Result Diagram: 03/20/1762603/20/17626 Imaging Last Impressions Hip and Pelvis X-Ray 03/20/17618 Signed Impressions: Service Date/Time: Monday, March 20, 2017 06:43 - CONCLUSION: No acute left hip abnormality is identified. However, there has been left total hip arthroplasty with longstem femoral prosthesis and the acetabulum is superiorly located compared to the [place] acetabulum. The most proximal cerclage wire is fractured but otherwise artery demonstrates no acute finding. Irving Mejia MD Femur X-Ray 03/20/17618 Signed Impressions: Service Date/Time: Monday, March 20, 2017 06:45 - CONCLUSION: No definite acute finding is identified. Extensive left femur and hip hardware, as above. The most proximal left femur cerclage wire is fractured. Irving Mejia MD Lower Extremity CT 03/20/17 0000 Signed Impressions: Service Date/Time: Monday, March 20, 2017 19:59 - CONCLUSION: 1. No acute fracture demonstrated. 2. Malpositioned acetabular component of the left hip arthroplasty but this appears chronic. 3. Chronic appearing bony resorption around proximal portion of the femoral component of the left hip arthroplasty but no evidence of loosening. 4. Healed mid shaft fracture of the left femur. Mid and distal lateral plate and screws present. Irving Rizo MD Procedures No Procedures. Other Results Laboratory Tests Test 03/20/17 06:27 White Blood Count 7.5 TH/MM3 Red Blood Count 5.24 MIL/MM3 Hemoglobin 13.6 GM/DL Hematocrit 41.2 % Mean Corpuscular Volume 78.7 FL Mean Corpuscular Hemoglobin 25.9 PG Mean Corpuscular Hemoglobin 32.9 % Concent Red Cell Distribution Width 16.1 % Platelet Count 217 TH/MM3 Mean Platelet Volume 8.9 FL Neutrophils (%) (Auto) 61.7 % Lymphocytes (%) (Auto) 28.9 % Monocytes (%) (Auto) 9.3 % Eosinophils (%) (Auto) 0.0 % Basophils (%) (Auto) 0.1 % Neutrophils # (Auto) 4.6 TH/MM3 Lymphocytes # (Auto) 2.2 TH/MM3 Monocytes # (Auto) 0.7 TH/MM3 Eosinophils # (Auto) 0.0 TH/MM3 Basophils # (Auto) 0.0 TH/MM3 CBC Comment DIFF FINAL Differential Comment Prothrombin Time 11.4 SEC Prothromb Time International 1.0 RATIO Ratio Activated Partial 35.4 SEC Thromboplast Time Sodium Level 139 MEQ/L Potassium Level 3.6 MEQ/L Chloride Level 102 MEQ/L Carbon Dioxide Level 27.4 MEQ/L Anion Gap 10 MEQ/L Blood Urea Nitrogen 12 MG/DL Creatinine 0.77 MG/DL Estimat Glomerular Filtration 73 ML/MIN Rate Random Glucose 151 MG/DL Calcium Level 9.4 MG/DL Total Bilirubin 0.4 MG/DL Aspartate Amino Transf 13 U/L (AST/SGOT) Alanine Aminotransferase 14 U/L (ALT/SGPT) Alkaline Phosphatase 89 U/L Total Protein 7.9 GM/DL Albumin 3.8 GM/DL Objective Remarks GENERAL: Well-developed well-nourished. In no acute distress. SKIN: Warm and dry. No lesions noted. HEENT: Normocephalic. Pupils equal and round. Mucous membranes pink and moist. CARDIOVASCULAR: Regular rate and rhythm. No murmur appreciated. RESPIRATORY: No accessory muscle use. Clear to auscultation. Breath sounds equal bilaterally. GASTROINTESTINAL: Abdomen soft, non-tender, nondistended. Bowel sounds x4. MUSCULOSKELETAL: Left hip pain with ROM. No history of TTP. No calf swelling or tenderness. No clubbing or cyanosis. No edema. NEUROLOGICAL: Awake and alert. No focal neurological deficits. Moves upper and lower extremities spontaneously. Normal speech. Limited strength exam at left hip. Otherwise strength 5/5. PSYCHIATRIC: Appropriate mood and affect; insight and judgment normal. Medications and IVs Current Medications Medications (Trade) Dose Ordered Sig/Catracho Route Start Time Stop Time Status Last Admin (Norvasc) 2.5 mg DAILY PO 03/20/17 09:45 03/20/17 13:02 (Pradaxa) 150 mg BID PO 03/20/17 09:45 03/20/17 20:45 (Microzide) 12.5 mg DAILY PO 03/20/17 09:45 03/20/17 13:00 (Synthroid) 125 mcg DAILY@06 PO 03/20/17 09:45 03/21/17 06:35 (Cozaar) 25 mg DAILY PO 03/20/17 09:45 03/20/17 13:02 (Pravachol) 10 mg HS PO 03/20/17 21:00 03/20/17 20:45 (NS Flush) 2 ml UNSCH PRN IV FLUSH 03/20/17 09:45 (NS Flush) 2 ml BID IV FLUSH 03/20/17 21:00 03/20/17 21:00 (Tylenol) 650 mg Q4H PRN PO 03/20/17 09:45 (Zofran Inj) 4 mg Q6H PRN IVP 03/20/17 09:45 (Narcan Inj) 0.4 mg UNSCH PRN IV 03/20/17 09:45 (Kelsie-Colace) 1 tab BID PO 03/20/17 21:00 03/20/17 20:45 (Milk Of Magnesia Liq) 30 ml Q12H PRN PO 03/20/17 09:45 (Senokot) 17.2 mg Q12H PRN PO 03/20/17 09:45 (Dulcolax Supp) 10 mg DAILY PRN RECTAL 03/20/17 09:45 (Lactulose Liq) 30 ml DAILY PRN PO 03/20/17 09:45 (Pill Splitter) 1 ea UNSCH PRN OTHER 03/20/17 10:00 (Vasotec Inj) 1.25 mg Q6H PRN IV PUSH 03/20/17 10:30 (Pepcid) 20 mg BID PO 03/20/17 17:15 03/20/17 20:45 ([place] 5-325 Mg) 1 tab Q4H PRN PO 03/21/17 08:30 ([place] 7.5-325 Mg) 1 tab Q4H PRN PO 03/21/17 08:30 A/P Assessment and Plan 76-year-old female with a past medical history of chronic left hip pain, HTN, HLD, DM, hypothyroidism, urinary incontinence, history of DVT who presented for worsening left hip pain Acute on chronic intractable left hip pain: X-rays show no acute findings with stable hardware other than proximal left cerclage wire which was fractured. Consult patient's orthopedic physician, although we'll plan on conservative management. Continue pain control with tramadol and IV morphine for breakthrough. PT. as per PT no need for PT at home recommended by Orthopedic Surgery to discharge and follow with Doctor Braulio in two weeks, no weight bearing on the left lower extremity. Diabetes mellitus: Hold her metformin. Monitor Accu-Cheks. Cover with SSI. History of DVT: Continue Pradaxa Hypertension: Chronic. controlled. Obesity strongly recommended diet and exercise. Other chronic medical conditions include HLD, incontinence, chronic constipation : Stable at this time and will continue home medications as indicated. Code Status Full Code Discussed Condition With Patient, PA and relatives in the room. Discharge Planning Discharge Today. Aakash Lemus MD Mar 21, 2017 09:04
--- NOTE | 2017-03-21 09:06 | HHI.DS ---
Discharge Summary Admission Date Mar 20, 2017 at 09:41 Discharge Date: Mar 21, 2017 Admitting Diagnosis intractable left hip pain, inability to ambulate (1) Stress fracture ICD Code: M84.30XA Diagnosis: Principal (2) Intractable pain ICD Code: R52 Diagnosis: Principal (3) Inability to ambulate due to hip ICD Code: R26.2 Diagnosis: Principal Procedures None Brief History - From Admission 76-year-old female with a past medical history of chronic left hip pain, HTN, HLD, DM, hypothyroidism, urinary incontinence, history of DVT who presented for worsening left hip pain. The patient states that since Sunday she's been having worsening left hip pain. The patient has a history of chronic left hip pain with surgery 6 with previous hardware failure, left pleurectomy DVT several years ago, history of MRSA infection of the left hip postoperatively. The patient states that previously she had intermittent left chest pain but is now become constant. She states that previously she takes tramadol for the hip pain usually once a day, the most 2. She denies any new injury to her hip or any recent overuse. She states the Pain has been relieved with morphine and is exacerbated when she moves it. He denies any fevers or chills. Her current orthopedic doctor is Dr. Tate. CBC/BMP: 03/20/1727 03/20/1727 Significant Findings Laboratory Tests Test 03/20/17 06:27 Mean Corpuscular Volume 78.7 FL (80.0-100.0) Mean Corpuscular Hemoglobin 25.9 PG (27.0-34.0) Monocytes (%) (Auto) 9.3 % (0.0-8.0) Activated Partial 35.4 SEC Thromboplast Time (24.3-30.1) Estimat Glomerular Filtration 73 ML/MIN (>89) Rate Random Glucose 151 MG/DL (74-106) Aspartate Amino Transf 13 U/L (15-37) (AST/SGOT) Imaging Last Impressions Hip and Pelvis X-Ray 03/20/17 0619 Signed Impressions: Service Date/Time: Monday, March 20, 2017 06:43 - CONCLUSION: No acute left hip abnormality is identified. However, there has been left total hip arthroplasty with longstem femoral prosthesis and the acetabulum is superiorly located compared to the [place] acetabulum. The most proximal cerclage wire is fractured but otherwise artery demonstrates no acute finding. Irving Mejia MD Femur X-Ray 03/20/17 0619 Signed Impressions: Service Date/Time: Monday, March 20, 2017 06:45 - CONCLUSION: No definite acute finding is identified. Extensive left femur and hip hardware, as above. The most proximal left femur cerclage wire is fractured. Irving Mejia MD Lower Extremity CT 03/20/17 0000 Signed Impressions: Service Date/Time: Monday, March 20, 2017 19:59 - CONCLUSION: 1. No acute fracture demonstrated. 2. Malpositioned acetabular component of the left hip arthroplasty but this appears chronic. 3. Chronic appearing bony resorption around proximal portion of the femoral component of the left hip arthroplasty but no evidence of loosening. 4. Healed mid shaft fracture of the left femur. Mid and distal lateral plate and screws present. Irving Rizo MD PE at Discharge GENERAL: Well-developed well-nourished. In no acute distress. SKIN: Warm and dry. No lesions noted. HEENT: Normocephalic. Pupils equal and round. Mucous membranes pink and moist. CARDIOVASCULAR: Regular rate and rhythm. No murmur appreciated. RESPIRATORY: No accessory muscle use. Clear to auscultation. Breath sounds equal bilaterally. GASTROINTESTINAL: Abdomen soft, non-tender, nondistended. Bowel sounds x4. MUSCULOSKELETAL: Left hip pain with ROM. No history of TTP. No calf swelling or tenderness. No clubbing or cyanosis. No edema. NEUROLOGICAL: Awake and alert. No focal neurological deficits. Moves upper and lower extremities spontaneously. Normal speech. Limited strength exam at left hip. Otherwise strength 5/5. PSYCHIATRIC: Appropriate mood and affect; insight and judgment normal. Hospital Course 76-year-old female with a past medical history of chronic left hip pain, HTN, HLD, DM, hypothyroidism, urinary incontinence, history of DVT who presented for worsening left hip pain. The patient states that since Sunday she's been having worsening left hip pain. The patient has a history of chronic left hip pain with surgery 6 with previous hardware failure, left pleurectomy DVT several years ago, history of MRSA infection of the left hip postoperatively. The patient states that previously she had intermittent left chest pain but is now become constant. She states that previously she takes tramadol for the hip pain usually once a day, the most 2. She denies any new injury to her hip or any recent overuse. She states the Pain has been relieved with morphine and is exacerbated when she moves it. He denies any fevers or chills. Her current orthopedic doctor is Dr. Tate. 03/21: Seen in her bedroom in the presence of relatives, as per Orthopedic Surgery recommended to discharge Home and follow up with Doctor Ramsey in two weeks, will follow as outpatient probable Stress fracture on the left, recommended no weight bearing on the left lower extremity, crutches indicated, discussed with software developer manager, no nausea, vomit or diarrhea. Assessment and Plan 76-year-old female with a past medical history of chronic left hip pain, HTN, HLD, DM, hypothyroidism, urinary incontinence, history of DVT who presented for worsening left hip pain Acute on chronic intractable left hip pain: X-rays show no acute findings with stable hardware other than proximal left cerclage wire which was fractured. Consult patient's orthopedic physician, although we'll plan on conservative management. Continue pain control with tramadol and IV morphine for breakthrough. PT. as per PT no need for PT at home recommended by Orthopedic Surgery to discharge and follow with Doctor Ramsey in two weeks, no weight bearing on the left lower extremity. Diabetes mellitus: Hold her metformin. Monitor Accu-Cheks. Cover with SSI. History of DVT: Continue Pradaxa Hypertension: Chronic. controlled. Obesity strongly recommended diet and exercise. Other chronic medical conditions include HLD, incontinence, chronic constipation : Stable at this time and will continue home medications as indicated. Code Status Full Code Discussed Condition With Patient, PA and relatives in the room. Discharge Planning Discharge Today. Pt Condition on Discharge: Stable Discharge Disposition: Discharge Home Discharge Time: <= 30 minutes Discharge Instructions DIET: Follow Instructions for: Heart Healthy Diet, Diabetic Diet Activities you can perform: Non Weight Bearing Other Activity Instructions: Non Weight bearin on the left Hip as per Orthopedic Surgery. Aakash Lemus MD Mar 21, 2017 09:06
[2017-03-21] MEDS: SODIUM CHLORIDE 0.9% FLUSH 10 ML FLUSH IV FLUSH SCH (10:06)
[2017-03-21] MEDS: LOSARTAN 25 MG TAB PO SCH (10:06)
[2017-03-21] MEDS: amLODIPine BESYLATE 5 MG TAB PO SCH (10:07)
[2017-03-21] MEDS: DOCUSATE SODIUM 50 MG/SENNA 8.6 MG TAB PO SCH (10:07)
[2017-03-21] MEDS: HYDROCHLOROTHIAZIDE 12.5 MG CAP PO SCH (10:07)
[2017-03-21] MEDS: FAMOTIDINE 20 MG TAB PO SCH (10:07)
[2017-03-21] MEDS: DABIGATRAN ETEXILATE 150 MG CAP PO SCH (10:07)
== END 2017-03-21 10:32 | disposition home or self-care (01) ==
LOC: NEPE 05:59 → NEDA 09:41 → NEPGCP 11:39
PROVIDERS: ADMIT Internal Medicine; ATTEND Internal Medicine
DX: T84.115A Breakdown (mechanical) of internal fixation device of left femur, initial encounter (principal); R26.2 Difficulty in walking, not elsewhere classified; I10 Essential (primary) hypertension; E11.9 Type 2 diabetes mellitus without complications; E03.9 Hypothyroidism, unspecified; D64.9 Anemia, unspecified; E78.5 Hyperlipidemia, unspecified; E66.9 Obesity, unspecified; K59.09 Other constipation; R32 Unspecified urinary incontinence; M19.019 Primary osteoarthritis, unspecified shoulder; Z86.718 Personal history of other venous thrombosis and embolism; Z79.84 Long term (current) use of oral hypoglycemic drugs; Z86.14 Personal history of Methicillin resistant Staphylococcus aureus infection; Z88.0 Allergy status to penicillin; Z79.01 Long term (current) use of anticoagulants; Z96.643 Presence of artificial hip joint, bilateral
CPT/HCPCS: 73502; 73552; 73700; 80053; 82948; 85025; 85610; 85730; 96374; 96375; 96376; 97161; 99285; E0113; G0378; G8987; G8988; J2270; J2405